=== PATIENT | female | born 1955 | race Caucasian/White ===

== ENCOUNTER 2016-11-12 11:22 | Emergency (ER) | payer OTHER ==
[~2016-11-12] VITALS: Ht 162.6 cm; Wt 88.6 kg
[2016-11-12 11:25] VITALS: BP 156/97; PULSE 91; RESP 18; O2SAT 95
--- NOTE | 2016-11-12 11:55 | ED.REPORT ---
HPI-Abd Pain F 40 and Over Date of Service Nov 12, 2016 ED Provider: Tom Leblanc MD The patient is a 61 year old female who presents to the ED due to abdominal pain after being jumped on by her 60 lb dog 7 days ago. The dog's paws landed right on her mid abdomen and caused a slight bruise. She does not currently feel any pain. She denies any chronic conditions or previous surgeries. She has had normal bowel movements and denies vomiting, fever, and LOC. The pt had a large ovarian cyst removed 5 years ago. Nursing Notes Stated Complaint: STOMACH PAIN Chief Complaint: Female Abdominal Pain Nursing Notes Reviewed: Yes Allergies: Coded Allergies: No Known Allergies (Unverified , 11/12/16) General Time Seen by MD: 11:54 Chief Complaint Abdominal pain Hx Obtained From: Patient Arrived By: Walk-in Sudden in Onset?: Yes Onset Occurred: 1 week ago Symptom Duration: Since onset Progression since Onset: Gradually improving Location: : Abdomen lower Severity: Current: No pain currently Recent Healthcare: No recent doctor visit, No recent hospitalization Similar Sx Previous: No Past Medical History Past Medical History denies Past Surgical History 5 lb ovarian cyst removed 2011 Smoking History Unknown if Ever Smoker Social History Other Social History: Good social support, , Local resident Ambulatory Status Independent Review of Systems Constitutional: Denies: Fever GI: Reports: Abdominal pain, Denies: Vomiting Complete sys rev & neg: except as marked. Neurologic: Denies: Change LOC Physical Exam Vital Signs Vital Signs (First) Date Time Temp Pulse Resp B/P Pulse Ox O2 Delivery O2 Flow Rate FiO2 11/12/16 11:25 36.4 91 18 156/97 95 Room Air Initial VS: Reviewed Head / Eyes: Atraumatic, Normocephalic Extremities: Vascular intact, No swelling, No tenderness Skin: Warm, Dry Neurologic: Alert, Oriented, Nonfocal Psychiatric: Mood/affect normal, Behavior normal, Normal thought content General/Constitutional: Awake, Alert, Cooperative, Not toxic appearing Respiratory / Chest: Atraumatic, No retractions, No chest tenderness Cardiovascular: Regular rhythm Abdomen: Atraumatic, Soft, Non-tender Back: Atraumatic, Inspection NL, Full range of motion Re-Eval/Medical Decision Med Decision/Clinical Course Swollen and has no sign of intra-abdominal injury of any kind. She has very mild tenderness to deep palpation. The mechanism of her injury is relatively benign as well. I think outpatient follow-up next appropriate step. Counseled Regarding: Diagnosis, Lab results, Need for follow-up, When/why to return to ED Discharge & Departure Primary Impression: Abdominal pain Abdominal location: generalized Qualified Code: R10.84 - Generalized abdominal pain Disposition: Home Discharge Condition All VS Reviewed: Yes Condition: Stable Patient Instructions: Acute Abdominal Pain (ED) Additional Instructions: Since you have not had any worsening pain or symptoms following your dog jumping on you, I do not believe there are any dangerous causes for your symptoms at this time. Follow up with a primary care provider for further evaluation and testing. Return to the Emergency Department for any new or worsening symptoms. I hope you feel better soon! Referrals: [facility] Lisseth Dean Attestation Portion of this note were transcribed by Josei Russo. I, Dr. Leblanc, personally performed the history, physical exam, and medical decision-making: I reviewed and confirmed the accuracy for the information in the transcribed note. Signed by: balbina Troncoso, 12/02/16 1400 copies to: [facility]; Lisseth Dean Kirk H MD Nov 12, 2016 11:55 Josie Russo Nov 12, 2016 12:07
[2016-11-12 12:26] VITALS: BP 156/97; PULSE 91; RESP 18; O2SAT 95
[2016-12-02] MEDS ORDERED: VARE0.5T PO (10:48)
[2017-01-23] MEDS ORDERED: BUPR150T9 PO (16:00)
== END 2016-11-12 12:26 | disposition home or self-care (01) ==
LOC: SED 11:22
DX: R10.84 Generalized abdominal pain (principal); W54.1XXA Struck by dog, initial encounter; Y93.89 Activity, other specified; Y92.89 Other specified places as the place of occurrence of the external cause; Y99.8 Other external cause status

== ENCOUNTER 2016-11-17 16:49 | Emergency (ER) | payer OTHER ==
[~2016-11-17] VITALS: Ht 162.6 cm; Wt 88.6 kg
[2016-11-17 16:56] VITALS: BP 165/100; PULSE 84; RESP 20; O2SAT 97
--- NOTE | 2016-11-17 17:11 | ED.REPORT ---
HPI-Abd Pain M 40 and Over Date of Service Nov 17, 2016 ED Provider: Dr. Morales Santos M.D. A 61 year old female with a history of ovarian cysts s/p surgical removal presents to the ED with intermittent mid-upper abdominal pain onset three weeks ago, after her 60lb dog jumped onto her abdomen. The most recent episode began yesterday morning. The pain is exacerbated with standing. The patient also reports nausea and a palpable mass present in the painful area when standing. She denies vomiting, fever, chills, diarrhea, hematochezia, melena, chest pain, SOB, numbness, tingling, weakness, dysuria, hematuria, or other symptoms. The patient was seen in the ED five days ago with similar symptoms. Nursing Notes Stated Complaint: ABDOMEN PAIN Chief Complaint: Female Abdominal Pain Nursing Notes Reviewed: Yes Allergies: Coded Allergies: No Known Allergies (Unverified , 11/12/16) Scheduled PRN Hydrocodone-Acetaminophen 5-325 mg (Hydrocodone-Acetaminophen 5-325 mg) 1 Each Tablet 1 TABLET PO Q4H PRN PRN For Pain Ondansetron ODT (Zofran ODT) 4 Mg Tablet 4 MG PO Q4H PRN PRN For Nausea General Time Seen by MD: 17:10 Chief Complaint Abdominal pain Hx Obtained From: Patient Arrived By: Walk-in Sudden in Onset?: Yes Onset Occurred: More than a week ago... (3 weeks) Symptom Duration: Intermittent Location: : Abdomen upper (Mid) Quality: Painful Severity: Current: Moderate Severity: Maximum: Moderate Associated with: Reports: Nausea, Denies: Dysuria, Fever, Vomiting Pertinent Negative: Relieved by nothing Context Related History: Reports: Abdominal surgery Recent Healthcare: Recent doctor visit Similar Sx Previous: Yes Past Medical History Past Medical History Denies Past Surgical History 5 lb ovarian cyst removed 2011 Smoking History Unknown if Ever Smoker Social History Other Social History: Good social support, , Local resident Ambulatory Status Independent Review of Systems Review of Systems Note: + Mid-abdominal palpable mass present when standing - Tingling Constitutional: Denies: Chills, Fever Respiratory: Denies: Non-productive cough, Shortness of breath Cardiovascular: Denies: Chest pain GI: Reports: Abdominal pain (Mid-upper), Nausea, Denies: Diarrhea, Hematochezia, Melena, Vomiting Male: Denies Dysuria, Denies Hematuria Complete sys rev & neg: except as marked. Neurologic: Denies: Numbness, Weakness Physical Exam Initial Vital Signs Vital Signs (First) Date Time Temp Pulse Resp B/P Pulse Ox O2 Delivery O2 Flow Rate FiO2 11/17/16 16:56 36.6 84 20 165/100 97 Room Air Initial VS: Reviewed Head / Eyes: Atraumatic, Normocephalic Skin: Warm, Dry, No cyanosis Neurologic: Alert, Oriented, Nonfocal Psychiatric: Mood/affect normal, Behavior normal, Normal thought content General/Constitutional: Awake, Alert Respiratory / Chest: Breath sounds NL, Breath sounds = bilat, No respiratory distress Cardiovascular: Heart rate NL, Regular rhythm, Heart sounds NL, No gallop, No murmurs, No rubs Abdomen: Atraumatic, Soft, No guarding, No rebound, BS normoactive, No distention, No hernia, No palpable mass No organomegaly No rigidity Patient tender in the mid-abdomen below epigastrium on midline Interpretation & Diagnostics Lab Results Interpretation Result Diagram: 11/17/16 1714 11/17/16 1714 Test 11/17/16 17:14 White Blood Count 6.8th/mm3 (3.8-10.1) Red Blood Count 4.81mil/mm3 (3.90-5.20) Hemoglobin 14.8g/dL (12.0-15.6) Hematocrit 43.5% (35.0-46.0) Mean Corpuscular Volume 90.4fL (81-100) Mean Corpuscular Hemoglobin 30.8pg (27.0-35.0) Mean Corpuscular Hemoglobin Concent 34.0% (32.0-37.0) Red Cell Distribution Width 13.2% (12.3-15.4) Platelet Count 248bil/L (150-400) Neutrophils (%) (Auto) 60.0% (40-74) Lymphocytes (%) (Auto) 31.6% (14-46) Monocytes (%) (Auto) 5.8% (4-12) Eosinophils (%) (Auto) 2.2% (0-5) Basophils (%) (Auto) 0.3% (0-3) Sodium Level 140mEq/L (134-144) Potassium Level 3.9mEq/L (3.5-5.2) Chloride Level 104mEq/L (97-108) Carbon Dioxide Level 19mmol/L (18-29) Blood Urea Nitrogen 12mg/dL (8-27) Creatinine 0.90mg/dL (0.57-1.00) Estimat Glomerular Filtration Rate 91mL/min (>59) Glucose Level 112mg/dL (60-99) Calcium Level 9.4mg/dL (8.5-10.1) Magnesium Level 2.3mg/dL (1.6-2.6) Total Bilirubin 0.3mg/dL (0.0-1.2) Aspartate Amino Transf (AST/SGOT) 22U/L (0-50) Alanine Aminotransferase (ALT/SGPT) 26U/L (0-32) Alkaline Phosphatase 77U/L (25-165) Total Protein 7.0g/dL (6.4-8.4) Albumin 4.3g/dL (3.4-5.0) Lipase 43U/L (13-60) Hold [place] Top Tube Received (Received) CT Abd / Pelvis Interpretation IMPRESSION: 1. Lobulated hypoattenuating subcapsular lesion in the inferior right hepatic lobe is nonspecific but given the associated capsular retraction, the differential includes scarring from prior infection or trauma as well as neoplastic etiologies such as cholangiocarcinoma or metastatic disease. Given the presence of steatosis, a liver protocol MRI is recommended for further evaluation. 2. Mild segmental wall thickening of the colon at the hepatic flexure and proximal transverse colon may be due to nondistention or reflect a mild infectious or inflammatory colitis. 3. Small fat-containing umbilical ventral abdominal hernia with stranding and fluid within the herniated fat which may reflect fat necrosis. No evidence of bowel herniation. Dictated by: Jose Bill M.D. on 11/17/2016 at 19:30 Study type: Abdominal CT IV contrast, Abdom CT oral contrast Interpretation / Wet Read by: Interpret - Radiologist Re-Eval/Medical Decision Med Decision/Clinical Course A 61 year old female with a history of ovarian cysts s/p surgical removal presents to the ED with intermittent mid-upper abdominal pain onset three weeks ago, after her 60lb dog jumped onto her abdomen. The most recent episode began yesterday morning. The pain is exacerbated with standing. The patient also reports nausea and a palpable mass present in the painful area when standing. She denies vomiting, fever, chills, diarrhea, hematochezia, melena, chest pain, SOB, numbness, tingling, weakness, dysuria, hematuria, or other symptoms. The patient was seen in the ED five days ago with similar symptoms. Here in the emergency department the patient is afebrile with stable vital signs and in no apparent distress. Given her prior abdominal surgery, location of pain, sensation of bulging, worse with standing I suspect that she may have a ventral hernia. My suspicion that this has anything to do with the dog jumping on her is relatively low. Here she was treated with sublingual Zofran and 1 tablet of [place] for pain. Laboratory studies were notable was below: CBC unremarkable CMP unremarkable CT ABDOMEN: IMPRESSION: 1. Lobulated hypoattenuating subcapsular lesion in the inferior right hepatic lobe is nonspecific but given the associated capsular retraction, the differential includes scarring from prior infection or trauma as well as neoplastic etiologies such as cholangiocarcinoma or metastatic disease. Given the presence of steatosis, a liver protocol MRI is recommended for further evaluation. 2. Mild segmental wall thickening of the colon at the hepatic flexure and proximal transverse colon may be due to nondistention or reflect a mild infectious or inflammatory colitis. 3. Small fat-containing umbilical ventral abdominal hernia with stranding and fluid within the herniated fat which may reflect fat necrosis. No evidence of bowel herniation. Dictated by: Jose Bill M.D. on 11/17/2016 at 19:30 At this time, there are no findings suggestive of acute surgical intra- abdominal process. There is no clinical evidence of strain related or incarcerated hernia. There is no evidence of intra-abdominal bleeding or traumatic injury. She remains comfortable, hemodynamically stable and in no apparent distress. She has been referred to surgery for evaluation of possible operative repair of her ventral hernia. She has also been referred to residency clinic and advised to follow up regarding MRI to assess above- described liver lesion. Prior to discharge follow-up and return precautions were reviewed in detail with the patient who verbalized understanding and agreement with the plan. The patient was discharged in stable condition. Time of Eval: 20:01 Patient Status: Condition improved Re-Evaluation/Progress Note: Discussed with patient lab and CT results, diagnosis, and plan for discharge. Follow-up and return to the ER instructions given. Patient agrees with plan for care and all questions were addressed. Counseled Regarding: Diagnosis, Lab results, Need for follow-up, When/why to return to ED Discharge & Departure Primary Impression: Ventral hernia Obstruction and gangrene presence: without obstruction or gangrene Qualified Code: K43.9 - Ventral hernia without obstruction or gangrene Additional Impressions: Liver mass Abdominal pain Abdominal location: unspecified location Qualified Code: R10.9 - Unspecified abdominal pain History of abdominal surgery Disposition: Home Vital Signs - All Vital Signs Date Time Temp Pulse Resp B/P Pulse Ox O2 Delivery O2 Flow Rate FiO2 11/17/16 20:10 36.5 68 20 170/72 99 Room Air 11/17/16 16:56 36.6 84 20 165/100 97 Room Air )( All Prior VS Reviewed: Yes Condition: Improved Patient Instructions: Ventral Hernia (ED) Additional Instructions: Thank you for seeking care at the emergency room. It is difficult for us to make definitive diagnoses in the ED but we believe that you are experiencing a ventral hernia and a liver mass. Our primary goal today in the ED was to evaluate you for any life-threatening conditions. Your evaluation was reassuring. You will be discharged with a prescription for Zofran and a narcotic pain medication. Follow-up with surgery about your hernia. You should follow-up with your primary doctor in the next week about your liver mass. You may need an MRI in the future. You should return to the ED immediately if you develop worsening abdominal pain , vomiting, inability to eat or drink, abdominal bulging that you can't push back in, cough, shortness of breath, chest pain, lightheadedness, weakness or any other concerning signs or symptoms. Thank you for letting us partake in your care today. You have been prescribed a narcotic for pain relief. These drugs are usually combined with acetaminophen (Tylenol#3, Percocet, Darvocet, Anexsia, Vicodin) or aspirin (Empirin#3, Percodan, Synalogs-DC) for increased effect. Narcotics act on the central nervous system to reduce pain; they also impair mental alertness and physical abilities. We advise you not to drink alcohol, drive a car, or operate dangerous equipment when you are taking these drugs. You can lessen stomach irritation from your medicine by taking it with meals or a full glass of water. Common side effects of narcotics are: Nausea and vomiting , heartburn, constipation, dizziness, sleepiness, and mood changes. If you have bothersome side effects or symptoms of an allergic reaction (itching, hives, rash), stop taking your medicine and call your doctor or the emergency room right away. Please keep your narcotic medicine well out of the reach of children. Referrals: NOPCP (PCP) Shayan Montalvo MD [facility] Scribe Attestation Portions of this note were transcribed by Alva Puckett. I, Dr. Santos, personally performed the history, physical exam, and medical decision-making; I reviewed and confirmed the accuracy of the information in the transcribed note. Signed by: Daniella Sommer, 11/17/2016, 21:40 copies to: Shayan Montalvo MD; [facility] Morales Santos MD Nov 17, 2016 17:11 ALVA PUCKETT Nov 17, 2016 17:52
[2016-11-17 17:28] LABS: BASOPHILS % (AUTO) 0.3 % (0-3); EOSINOPHILS % (AUTO) 2.2 % (0-5); MONOCYTES % (AUTO) 5.8 % (4-12); Mean Corpuscular Hemoglobin 30.8 pg (27.0-35.0); Mean Corpuscular Volume 90.4 fL (81-100); Platelet Count 248 bil/L (150-400)
[2016-11-17 17:48] LABS: Magnesium 2.3 mg/dL (1.6-2.6)
--- NOTE | 2016-11-17 19:39 | DRSVH ---
PROCEDURE: CT ABDOMEN AND PELVIS WITH CONTRAST ([id number]) INDICATIONS: Abdominal pain with possible ventral hernia. TECHNIQUE: After the administration of oral and intravenous contrast, 5 mm thick sections acquired from the diap hragms to the symphysis. 5 mm thick coronal and sagittal reformats were performed. For radiation do se reduction, the following was used: automated exposure control, adjustment of mA and/or kV accordi ng to patient size. COMPARISON: None. FINDINGS: Image quality: Excellent. ABDOMEN: Lung bases: There is mild dependent atelectasis. There is a small hernia. Heart size is normal. Solid organs: There is hypoattenuation of the liver consistent with fatty infiltration with sparing a long the gallbladder fossa. There is a peripheral lobulated hypoattenuating lesion inferiorly in the right hepatic lobe with associated mild capsular retraction. This measures approximately 2.1 x 2.8 x 1.2 cm with mild peripheral enhancement. In addition, there are 2 indistinct small hypervascular f oci within the right hepatic lobe in segment VII on series 2 image 19 measuring 1 cm and in segment V I on image 31 measuring 1.1 cm. Biliary system is non-dilated. Pancreas enhances normally. No adre nal nodules. Kidneys are normal in size and enhancement, without hydronephrosis. Peritoneum and bowel: Stomach and small bowel loops are normal in caliber and wall thickness. There is mild segmental wall thickening of the hepatic flexure and proximal transverse colon which may be due to nondistention. There is colonic diverticulosis in the colon without diverticulitis. No free fluid or air. Nodes and vessels: No retroperitoneal or mesenteric adenopathy. Aorta and inferior vena cava are no rmal in caliber. Miscellaneous: There is a small fat containing umbilical hernia with a small amount of stranding and fluid within the herniated fat. No herniated bowel loops. PELVIS: Genitourinary: Bladder wall thickness is normal. Miscellaneous: No inguinal hernias or adenopathy. Bones: No suspicious bony lesions. No vertebral body compression fractures. IMPRESSION: 1. Lobulated hypoattenuating subcapsular lesion in the inferior right hepatic lobe is nonspecific bu t given the associated capsular retraction, the differential includes scarring from prior infection o r trauma as well as neoplastic etiologies such as cholangiocarcinoma or metastatic disease. Given th e presence of steatosis, a liver protocol MRI is recommended for further evaluation. 2. Mild segmental wall thickening of the colon at the hepatic flexure and proximal transverse colon may be due to nondistention or reflect a mild infectious or inflammatory colitis. 3. Small fat-containing umbilical ventral abdominal hernia with stranding and fluid within the herni ated fat which may reflect fat necrosis. No evidence of bowel herniation. Dictated by: Jose Bill M.D. on 11/17/2016 at 19:30 Approved by: Jose Bill M.D. on 11/17/2016 at 19:37
[2016-11-17] MEDS ORDERED: ONDA4TAB9 PO (19:56)
[2016-11-17] MEDS ORDERED: HYDR-4003 PO (19:56)
[2016-11-17 20:10] VITALS: BP 170/72; PULSE 68; RESP 20; O2SAT 99
[2016-12-02] MEDS ORDERED: VARE0.5T PO (10:48)
[2017-01-23] MEDS ORDERED: BUPR150T9 PO (16:00)
== END 2016-11-17 20:10 | disposition home or self-care (01) ==
LOC: SED 16:49
DX: K43.9 Ventral hernia without obstruction or gangrene (principal); R16.0 Hepatomegaly, not elsewhere classified; Z98.890 Other specified postprocedural states
CPT/HCPCS: 74177; 80053; 83690; 83735; 85025; 99284; Q9967

== ENCOUNTER 2016-12-03 12:30 | Day surgery (SDC) | payer OTHER ==
[~2016-12-03] VITALS: Ht 162.6 cm; Wt 86.0 kg
[~2016-12-03 12:30] MED LIST: 0.9% Sodium Chloride 1,000 ML IV SCH; HYDR-4003 PO; ONDA4TAB9 PO; Sodium Biphos-Phos 133 mL Enema RECTAL PRN; Sodium Chloride LOK Flush 10 mL Syringe IV PRN; VARE0.5T PO; fentaNYL-PF 50 mCg/mL 2 mL Inj IVPUSH PRN
[2016-12-03 13:03] VITALS: BP 153/91; PULSE 71; RESP 16; O2SAT 96
[2016-12-03 14:04] VITALS: BP 138/78; PULSE 62; RESP 16; O2SAT 97
[2016-12-03 14:14] VITALS: BP 137/78; PULSE 83; RESP 16; O2SAT 99
[2016-12-03 14:21] VITALS: BP 145/90; PULSE 65; RESP 16; O2SAT 96
--- NOTE | 2016-12-03 14:34 | ENDO ---
[address] [address] ENDOSCOPY PROCEDURE PATIENT: DAV PITT : 1955 MR#: [id number] ADMIT: 12/03/2016 JOB ID: [id number] DATE: 12/03/2016 PREPROCEDURE DIAGNOSIS: Transverse colon thickening. POSTPROCEDURE DIAGNOSIS: Sigmoid colon polyps x3, transverse colon polyp, sigmoid diverticulosis, internal hemorrhoids. PROCEDURE: Colonoscopy with biopsies. ENDOSCOPIST: Dr. Sergio Reyes. MEDICATIONS: 1. Versed 5 mg. 2. Fentanyl 75 mcg in incremental doses. INDICATIONS: The patient is a 61-year-old woman who presented to the emergency department with abdominal pain and intermittent constipation, as well as a painful lump in the epigastrium. A CT scan showed thickening of the hepatic flexure and proximal transverse colon, reflecting either mild infectious or inflammatory colitis versus nondistention. There was a ventral hernia containing fat. There was also a 2.8 cm mass in the right hepatic lobe with capsular retraction. After discussion of risks and benefits, she agreed to proceed with colonoscopy to evaluate the transverse colon thickening. After discussion of risks and benefits, she agreed to proceed. FINDINGS: There was no evidence of mass or colitis in the proximal transverse colon. Polyps were removed from the transverse colon at 90 cm, as well as three separate polyps from the sigmoid colon. There were internal hemorrhoids on retroflexion. DESCRIPTION OF PROCEDURE: At the outset of the procedure, the patient asked me to evaluate a separate opening adjacent to the anus. 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 This was in the midline. She was then sedated. She was connected to hemodynamic monitoring, pulse oximetry, capnography. After digital rectal examination, the PCF H 180 AL colonoscope was inserted. The scope was advanced under visualization until the ileocecal valve and appendiceal orifice were visualized and photo documented. There was no evidence of mass lesion or colitis in the proximal transverse colon. There were polyps, total of four removed during the procedure. There was a polyp at 90 cm in the transverse colon which was 3-4 mm, relatively flat and soft. This was removed with a hot snare plus cold forceps and sent for permanent pathology. There were a total of three separate polyps in the sigmoid colon. One polyp measured 4-5 mm, pedunculated, and was resected with a hot snare. The other two polyps were small measuring 2-3 mm, and resected with cold forceps. They were sent for permanent pathology. Retroflexion revealed small internal hemorrhoids. The scope was withdrawn and the procedure terminated. She tolerated the entire procedure well. RECOMMENDATIONS: She will follow up with me in surgery clinic to finalize plans for ventral hernia repair. She still needs to undergo MRI of the liver to further evaluate the liver mass seen on CT scan. For colon screening, depending on biopsy results, she should have repeat colonoscopy in three years.
--- NOTE | 2016-12-05 14:03 | PATH ---
SURGICAL PATHOLOGY Attending Physician:Virgen Basurto CASE STATUS: Signed Out PATIENT NAME: DAV PITT PID: [id number] : 1955 DATE COLLECTED:12/03/2016 00:00 SPECIMEN: 1: Colon, Biopsy 2: Colon, Biopsy CLINICAL HISTORY: 1. SIGMOID COLON POLYP 2. TRANSVERSE COLON POLYP FINAL DIAGNOSIS: 1.SIGMOID COLON POLYP: TUBULAR ADENOMA INVOLVING TWO BIOPSY FRAGMENTS. HYPERPLASTIC POLYP INVOLVING TWO BIOPSY FRAGMENTS. 2.TRANSVERSE COLON POLYP: TUBULAR ADENOMA INVOLVING SINGLE BIOPSY FRAGMENT. ICD10 code D12.3 GROSS DESCRIPTION: The specimen is received in two formalin filled containers labeled with the patient's name. 1). The specimen is sublabeled "sigmoid colon polyp" and consists of 5 portions of tissue which aggregate to 0.5 x 0.5 x 0.5 CM. The specimen is entirely submitted in cassette 1A. 2). The specimen is sublabeled "transverse colon polyp" and consists of 2 portions of tissue which aggregate to 0.6 x 0.4 x 0.4 CM. The specimen is entirely submitted in cassette 2A. 12/04/2016 [facility] MICRO DESCRIPTION: See diagnosis. ICD-9 CODES: CPT CODES: 1: 60733 2: 26833 Electronically Signed Out Franky Ott MD [facility] [address], [place] [address] Technical component performed at [facility], [address] [place] [address] Ave[address], [place], [address]
[2017-01-23] MEDS ORDERED: BUPR150T9 PO (16:00)
== END 2016-12-03 23:59 | disposition home or self-care (01) ==
LOC: END 12:30
PROVIDERS: ATTEND Student in an Organized Health Care Education/Training Program
DX: D12.5 Benign neoplasm of sigmoid colon (principal); D12.3 Benign neoplasm of transverse colon; K63.5 Polyp of colon; K57.30 Diverticulosis of large intestine without perforation or abscess without bleeding; Z87.898 Personal history of other specified conditions; F17.210 Nicotine dependence, cigarettes, uncomplicated; K64.8 Other hemorrhoids
CPT/HCPCS: 45380; 45385; 88305; 99153; G0500; J7030

== ENCOUNTER 2017-01-27 10:39 | Day surgery (SDC) | payer OTHER ==
[~2017-01-27] VITALS: Ht 162.6 cm; Wt 82.6 kg
[2017-01-27] VITALS (12 sets, daily range): BP systolic 130–155; BP diastolic 64–86; PULSE 64–85; RESP 15–18; O2SAT 92–98
[~2017-01-27 10:39] MED LIST changes: -0.9% Sodium Chloride 1,000 ML IV SCH; +BUPR150T9 PO; +Bupivacaine Liposome 1.3% 20 mL Inj INFILTRATE ONE; +CeFAZolin 2 Gm/50 mL D5W Duplex Bag IV ONE; -HYDR-4003 PO; +Lactated Ringer's 1,000 ML IV SCH; -ONDA4TAB9 PO; -Sodium Biphos-Phos 133 mL Enema RECTAL PRN; -Sodium Chloride LOK Flush 10 mL Syringe IV PRN; -VARE0.5T PO; -fentaNYL-PF 50 mCg/mL 2 mL Inj IVPUSH PRN
[2017-01-27] MEDS ORDERED: Rocuronium 10 mg/mL 5 mL Inj ONE (10:40)
[2017-01-27] MEDS ORDERED: HYDROmorphone 1 mg/mL Inj ONE (10:40)
[2017-01-27] MEDS ORDERED: EPHEDrine/NS 5 mg/mL 5 mL Syringe ONE (10:40)
[2017-01-27] MEDS ORDERED: Neostigmine 1 mg/mL 10 mL Inj ONE (10:40)
[2017-01-27] MEDS ORDERED: Ondansetron 2 mg/mL 2 mL Inj ONE (10:40)
[2017-01-27] MEDS ORDERED: Propofol 10,000 mCg/mL 20 mL Inj ONE (10:40)
[2017-01-27] MEDS ORDERED: fentaNYL-PF 50 mCg/mL 2 mL Inj ONE (10:40)
[2017-01-27] MEDS ORDERED: Glycopyrrolate 0.2 MG/ML 1mL Inj ONE (10:40)
[2017-01-27] MEDS ORDERED: Lactated Ringer's 1,000 ML IV ONE ×2 (11:30→16:05)
[2017-01-27] MEDS ORDERED: CeFAZolin 2 Gm/50 mL D5W Duplex Bag IV ONE (11:58)
[2017-01-27] MEDS ORDERED: Bupivacaine-MPF 0.5% W/EPI 30 mL Inj INFILTRATE ONE (14:07)
[2017-01-27] MEDS ORDERED: Bupivacaine Liposome 1.3% 20 mL Inj ONE (14:16)
[2017-01-27] MEDS ORDERED: Bupivacaine Liposome 1.3% 20 mL Inj INFILTRATE ONE (14:21)
[2017-01-27] MEDS ORDERED: Lactated Ringer's 500 ML IV PRN (15:40)
[2017-01-27] MEDS ORDERED: HYDROmorphone 1 mg/mL Inj IVPUSH PRN (15:40)
[2017-01-27] MEDS ORDERED: Phenylephrine 10,000 mCg/mL Inj IVPUSH PRN (15:40)
[2017-01-27] MEDS ORDERED: hydrALAZINE 20 mg/mL Inj IVPUSH PRN (15:40)
[2017-01-27] MEDS ORDERED: Ondansetron 2 mg/mL 2 mL Inj IVPUSH PRN ×2 (15:40→16:00)
[2017-01-27] MEDS ORDERED: Lactated Ringer's 1,000 ML IV SCH (15:40)
[2017-01-27] MEDS ORDERED: Dexamethasone 4 mg/mL Inj IVPUSH PRN (15:40)
[2017-01-27] MEDS ORDERED: Labetalol 5 mg/mL 4 mL Inj IV PRN (15:40)
[2017-01-27] MEDS ORDERED: Atropine 0.4 mg/mL Inj IVPUSH PRN (15:40)
[2017-01-27] MEDS ORDERED: MetoCLOpramide 5 mg/mL 2 mL Inj IVPUSH PRN ×2 (15:40→16:00)
[2017-01-27] MEDS ORDERED: EPHEDrine Sulfate 50 mg/mL Inj IVPUSH PRN (15:40)
--- NOTE | 2017-01-27 15:40 | PCM.HPANE ---
Patient Data Date of Service: Jan 27, 2017 Surgeon Admitting Provider: Attending Provider:Sergio Reyes MD Primary Care Physician:Mikie Other Provider:Iza Hickey Anesthesia Reason for Visit Liver Mass, Incisional Hernia Ht/WT & BMI Height (Feet): 5 Height (Inches): 4.00 Weight (Kilograms): 83.910 Body Mass Index 31.00 Allergies Coded Allergies: No Known Drug Allergies (Verified Allergy, Unknown, 12/03/16) Past Anesthesia History Anesthesia History: Denies:: Abnormal Airway, Anesthesia Reactions, Difficult Intubation, Fam Anesthesia Reaction, Fam Malignant Hypertherm, Malignant Hyperthermia Diabetes History Hx Diabetes?: No MRSA MRSA: No Medications Hypertension Medication: No Home Meds Incl Beta Aquilino: No Reported Medications Bupropion HCl (Zyban)150 Mg Tablet.er150 Mg PO BID for assistance with smoking cessation 01/23/17 Discontinued Reported Medications Varenicline Tartrate (Chantix)0.5 Mg Tablet0.5 Mg PO 12/02/16 Discontinued Scripts Hydrocodone-Acetaminophen 5-325 mg 1 Each Tablet1 Tablet PO Q4H PRN For Pain # 10 TABLET Prov:Morales Santos MD 11/17/16 Ondansetron ODT (Zofran ODT)4 Mg Tablet4 Mg PO Q4H PRN For Nausea #10 TABLET Prov:Morales Santos MD 11/17/16 History History of ENT Problems?: No HEENT History: Denies:: Abnormal Airway Difficult Intubation Dysphagia Hearing Problem Denture Type: None Teeth Condition: Within Normal Limits Hx of Heart Problems?: No Cardiovascular History: Denies:: AICD Congestive Heart Failure Hypertension Pacemaker Valvular Heart Disease Hx of Respiratory Problem?: No Respiratory History: Denies:: Oxygen Administration Tuberculosis Use of C-PAP Machine Hx Neurologic Problems?: No Neurological History: Denies:: CVA Dementia Multiple Sclerosis Parkinson's Disease Seizures Hx of GI Problems?: Yes Gastrointestinal History: Positive for:: Liver Disease (mass on imaging) Other GI Pertinent History: incisional hernia current admission problem Hx of Problems?: No Genitourinary History: Denies:: Kidney Stones Urinary Tract Infection HX of Peritoneal Dialysis: No Female Hx: Denies:: Currently Skin History: Denies:: History Skin Disorders? Hx Musculoskeletal Problems?: No Musculoskeletal History: Denies:: Joint Replacement Hx of Psycho/Social Problems?: No Psycho Social History: Denies:: Anxiety Hx Depression Hx Surgeries?: Yes (large ovarian cyst removed 5 years ago) Hx Any Other Health Problems?: Yes Other History: Denies:: Cancer Thyroid Disease Hx Diabetes: No Hx Alcohol Use: Yes (2-3 BEERS WEEKLY)Hx Substance Use: No Smoking Status: Unknown if Ever Smoker Have You Smoked inLast 12 mo: Yes Stop/Bang Treated for Sleep Apnea?: No Do You Have a CPAP Machine?: No S-Snoring: Do You Snore Loudly: No T-Tired: feel tired, fatigued: No O-Obsered: Observed not breath: No P-Blood Pressure: treated: No B- Body Mass Index > 35 kg/m2: No A- Age over 50: Yes N- Neck Large Circumference: No G- Gender Male: No NATHALIE Total Score: 1 NATHALIE Risk Assessment: Low Risk, <3 Yes Risk Assessment Category Category 1A: Patient has history of documented sleep apnea, and HAS NOT received any narcotic, sedative or anesthesia administration during this stay. Category 1B: Patient has history of documented sleep apnea, and HAS received any narcotic , sedative or anesthesia administration during this stay Category 2: Patient has SUSPECTED Obstructive Sleep Apnea, and HAS received any narcotic , sedative or anesthesia administration during this stay. Category 3: Patient has SUSPECTED Obstructive Sleep Apnea and HAS NOT received narcotic, sedative or anesthesia administration during this stay. Category 4: Outpatient in Procedural Areas with known sleep apnea or who screen positive for High Risk via the STOP/BANG questionnaire. Exam Exam Vital Signs Vital Signs Date Time Temp Pulse Resp B/P Pulse Ox O2 Delivery O2 Flow Rate FiO2 01/27/17 11:28 36.8 64 16 144/75 95 Room Air General Appearance: Alert, Oriented X3, Cooperative HEENT/AIRWAY: MP 3, Neck Movement (Full), Mouth Opening (Wide) Lungs: Clear to Auscultation, Normal Air Movement Heart: Regular Rate/Rhythm, Normal S1, Normal S2 Plan Impression Patient chart reviewed, patient interviewed and anesthestic plan with risks, benefits, and alternatives discussed, and informed consent obtained. NPO per Anesth. Guidelines: Yes ASA Physical Status: ASA2 Mod Systemic Disease Anesthetic Plan: GA Bene/Risks/Altern/Consents: Yes HP Complete Prior to Induction: Yes Kennedy Castano MD Jan 27, 2017 12:18
[2017-01-27] MEDS ORDERED: Morphine PCA 1 mg/mL 30 mL Inj IV PRN (16:00)
--- NOTE | 2017-01-27 16:13 | PCM.SURGOP ---
Surgical Operative Report Date of Service: Jan 27, 2017 Pre Operative Diagnosis Multi-fenestrated ventral incisional hernia, liver mass Post Operative Diagnosis Same Procedure: Laparoscopic liver biopsy, open ventral incisional hernia repair with mesh Surgeon and Roller Shop Utility Worker: Surgeon: Sergio Reyes MD Assistants: Vidal Yo PA-C Indication for Procedure 61-year-old woman who developed a multi-fenestrated ventral incisional hernia after prior resection of a large benign ovarian cyst. At the time of diagnosis , she was smoking cigarettes, and smoking cessation was required before proceeding with repair, which she successfully did for 4 weeks. She also was found to have a liver mass on the capsule of the right hepatic lobe adjacent to the gallbladder. The mass was 3.2 cm in diameter. Because it was on the capsule, it was not felt to be safe for percutaneous biopsy. She had a colonoscopy which was negative for pathology. After discussion of risks and benefits, she agreed to proceed with laparoscopic liver biopsy, and open ventral incisional hernia repair with mesh. Findings: The liver lesion did not grossly appear malignant, but there was some puckering of the capsule adjacent to the gallbladder, which was biopsied. As expected, there were 2 separate ventral incisional hernias, not incarcerated. The combined fascial defect after extending between the 2 openings was 8 cm craniocaudal by 5 cm transverse. A repair was performed using the 10 x 15 cm Ventralight mesh in the retrorectus position. Procedure Details After smooth induction of general endotracheal anesthesia, she was placed in the supine position with both arms out, and was prepped and draped in wide sterile fashion. A procedural pause was performed according to the SCOAP checklist, and all were found to be in agreement. Pneumoperitoneum was established with a Veress needle in the left upper quadrant without difficulty. The abdomen was then entered through the right midabdomen with a 5 mm optical viewing trocar. The Veress needle site was inspected, and there was no injury. The Veress needle was removed. An additional 5 mm port was placed in the right upper quadrant. The liver was inspected. There was a puckered area of the capsule adjacent to the gallbladder , but there was no obvious malignant mass. There was also a tiny punctate white area on the capsule fairly high on the dome of the left hepatic lobe in the medial segment, which was not accessible to laparoscopic biopsy. A Cornel-Cut needle was used to obtain a biopsy of the puckered area in the right hepatic lobe, which was sent for permanent pathology. Hemostasis was achieved with gentle compression of the biopsy site. The abdominal wall was inspected, revealing the known two ventral incisional hernia defects, without evidence of incarceration. The ports were removed and pneumoperitoneum was released. A midline incision was made, extending from the known hernia sites on the upper abdomen down to the level of the umbilicus. Dissection was carried through the subcutaneous tissue until the midline fascia was incised, and the abdomen was entered through one of the hernia defects. The superior hernia defect contained a portion of the falciform ligament. The two ends were tied with 2-0 silk suture, and the falciform ligament was divided. The fascia was skeletonized circumferentially. The size of the defect was 8 cm craniocaudal by 5 cm transverse. A retrorectus repair was performed. The posterior rectus fascia was peeled off the rectus abdominus muscle circumferentially. The posterior rectus fascia was closed using running 0 Vicryl sutures 2. Skin flaps were then elevated off the rectus abdominus muscle anteriorly. The umbilicus was disconnected from the midline fascia. A repair was then performed using the Bard Ventralight mesh in the retrorectus position. The 10 x 15 cm mesh was selected. This was secured using interrupted 0 Prolene sutures which were trans-fascial through the anterior rectus fascia and the rectus muscle. The mesh was in good position with an appropriate amount of tension. The anterior rectus fascia was then closed using running 0 Vicryl sutures 2. The umbilicus was resuspended to the fascia with a 3-0 Vicryl suture in a [id number]. Liposomal bupivacaine was instilled into the fascia and into the subcutaneous tissue. A 19 Afghan round HARRY drain was brought out through the right mid abdominal port site skin incision, and positioned between the skin flap and the anterior rectus. The drain was secured to the skin with a 2-0 nylon stitch. The deep subcutaneous tissue was reapproximated with running 3-0 Vicryl suture. The skin incisions were closed with running 4-0 Monocryl subcuticular stitches. Steri-Strips and sterile dressings were applied. At the end of the case all needle and sponge counts were correct 2. The patient was awakened from anesthesia without difficulty, and taken to the recovery room in satisfactory condition, having tolerated the procedure well. Complications There were no periprocedural complications identified. Surgical Specimen Removed: Yes Specimen sent to Pathology: Yes Surgical Specimen description: Liver biopsy Anesthetic Plan: GA Grafts, Implants: Implants-See Implant Record Output, Estimated Blood Loss: 30 Blood Administration during fuentes: No Drains: HARRY Drain #1 Catheters: None Sergio Reyes MD Jan 27, 2017 16:13
--- NOTE | 2017-01-27 16:20 | PCM.ANEP1 ---
Post Anesthesia PACU Phase 1 Assessment Date of Service: Jan 27, 2017 Vital Signs Vital Signs Date Time Temp Pulse Resp B/P Pulse Ox O2 Delivery O2 Flow Rate FiO2 01/27/17 11:28 36.8 64 16 144/75 95 Room Air Anesthetic Administered: GA Level of Alertness: Awake, talking VILCHIS's with Equal Strength: Yes Pain: Yes Nausea or Vomiting: No CV Function & Hydration Stable: Yes Airway Device: Oxygen Delivery: Simple Mask Lungs: Clear to Auscultation, Normal Air Movement PACU Phase 2 Assessment Complications: No Follow up Care: N/A Patient Instructions Provided: N/A Kennedy Castano MD Jan 27, 2017 16:20
[2017-01-27] MEDS: fentaNYL-PF 50 mCg/mL 2 mL Inj IVPUSH PRN ×2 (16:25→16:35)
[2017-01-27] MEDS: Heparin 5,000 Unit/mL Inj SUBQ SCH (18:30)
[2017-01-27] MEDS: Dextrose 5% Lactated Ringer's 1,000 ML IV SCH (18:31)
--- NOTE | 2017-01-27 18:43 | NUR ---
[facility] Patient arrived to [facility] at 1745 from OR where she underwent an open hernia repair and liver biopsy. Abdominal site and ABD are c/d/i with minimal spotting. Patient c/o pain 5/10, Toradol given and MS HOSPICE CLINICAL SUPERVISOR started and patient is now resting comfortably. LR 80ml/hr, HARRY drain right side serosang with 20mls output.
[2017-01-27] MEDS: Acetaminophen IV 1,000 MG in IV Premix 1 EACH IV SCH (19:51)
[2017-01-28] VITALS (7 sets, daily range): BP systolic 118–160; BP diastolic 68–86; PULSE 77–85; RESP 16–20; O2SAT 91–95
[2017-01-28] MEDS: Acetaminophen IV 1,000 MG in IV Premix 1 EACH IV SCH ×3 (02:30→14:30)
[2017-01-28] MEDS: Heparin 5,000 Unit/mL Inj SUBQ SCH ×2 (03:13→10:30)
[2017-01-28 06:16] LABS: BASOPHILS % (AUTO) 0.2 % (0-3); EOSINOPHILS % (AUTO) 0.6 % (0-5); MONOCYTES % (AUTO) 5.2 % (4-12); Mean Corpuscular Hemoglobin 30.5 pg (27.0-35.0); Mean Corpuscular Volume 91.7 fL (81-100); NEUTROPHILS % (AUTO) 77.9 % (40-74); Platelet Count 181 bil/L (150-400)
[2017-01-28] MEDS: Dextrose 5% Lactated Ringer's 1,000 ML IV SCH ×2 (06:22→16:23)
[2017-01-28] MEDS ORDERED: HYDR-4003 PO (06:50)
--- NOTE | 2017-01-28 06:50 | PCM.DISURG ---
Surgical Discharge Instruction Date of Service Jan 28, 2017 Dates of Hospitalization Date of Hospital Admission Providers Admitting Physician: Primary Care Physician: Mikie Attending Physician: Sergio Reyes MD Discharge Diagnosis Discharge Diagnosis ventral incisional hernia Post Operative diagnosis Same Diet Discharge Diet: No restrictions Activity Discharge Activity-General: No lifting >10 pounds for 4-6 weeks Dressing and Incisional Care Dressing Care: Allow Steri Stripes to fall off, Remove outer dressing after 24 hrs Hygiene: May shower Additional Instructions Discharge Instructions Empty HARRY drain and record output daily, or more frequently as needed. Call the surgery clinic when HARRY output is less than 20mL in 24 hours, and the drain can be removed at that time. Follow Up Plan Follow Up Plan with Dr. Reeys in 10-14 days. Call your provider for: Fever (over 101.5F), Vomiting, Discharge @ incision, pus discharge Sergio Reyes MD Jan 28, 2017 06:50
[2017-01-28] MEDS ORDERED: POLY17PO6 PO (07:11)
--- NOTE | 2017-01-28 07:41 | PROG NOTE ---
[address] [address] PROGRESS NOTE PATIENT: DAV PITT : 1955 MR#: [id number] ADMIT: 01/27/2017 JOB ID: [id number] DATE: 01/28/2017 SUBJECTIVE: The patient is seen in followup. She feels pretty good this morning. 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 She has no nausea today. She has not passed any flatus. She is urinating without difficulty. OBJECTIVE: Temperature 36.8, pulse 80, blood pressure 118/68, saturation 95% on room air. In general, she is resting in bed, in no acute distress. Chest is clear. Heart: Regular rate and rhythm. No murmurs. Abdomen is soft, nondistended. Her dressings are intact, with no significant drainage. HARRY drain has serosanguineous output, 60 cc overnight. LABORATORIES: White blood cell count 6.5, hematocrit 38.5, platelets 181. Creatinine 0.70, glucose 122. ASSESSMENT AND PLAN: A 61-year-old woman, postoperative day one, status post laparoscopic liver biopsy and open ventral incisional hernia repair with mesh. She is doing well clinically. She will be switched to oral pain medications this morning, and the [employer] ARCHITECT discontinued. If her pain control is adequate on oral pain meds, she can go home today. She will go home with the HARRY drain and will follow up in the Surgery Clinic when drain output is less than 20 cc in 24 hours. She will see me in the Surgery Clinic for a checkup in 10-14 days.
--- NOTE | 2017-01-28 07:59 | NUR ---
HARRY /Pain/ PATTERN CHANGER AND REPAIRER Pt reports pain 02/16, managed with PATTERN CHANGER AND REPAIRER and pt utilized 6mg of morphine this shift. Toradol given once with good effect. Pt ambulates to restroom without difficulty, SBA to manage tubes. HARRY draining sanguinous fluid. IV infusing D5LR at 80. SCD in place. Care continues
[2017-01-28] MEDS ORDERED: Polyethylene Glycol (PEG) 17 Gm Powder PO SCH (08:30)
[2017-01-28] MEDS: HYDROcodone-APAP 5-325 mg Tablet PO PRN ×2 (09:06→15:16)
--- NOTE | 2017-01-28 18:02 | NUR ---
DISCHARGE Patient discharged at 1720 left with who will drive her home. Patient denies chest pain, nausea and shortness of breath. Medications reviewed and new Rx given, HARRY teaching done, and patient verbalizes understanding. Patient received care notes and written follow up instructions, instructed to call with any concerns. IV catheter removed intact and personal belongings returned.
--- NOTE | 2017-01-29 08:05 | PCM.DC.SUR ---
Discharge Summary Date of Service: Date of Hospital Admission: 01/27/2017 Date of Operation(s): 01/27/2017 Date of Discharge: Jan 28, 2017 at 17:02 Diagnosis at Time of Discharge Primary diagnoses: 1. Multi-fenestrated ventral incisional hernia. 2. Liver mass Other chronic conditions: 1. Daily cigarette smoker 2. History of benign ovarian mass 3. History of pilonidal cyst Problems: Operation 1. Laparoscopic liver biopsy 2. open ventral incisional hernia repair with mesh Brief History and Physical: The patient is a 61-year-old woman who developed a multi-fenestrated ventral incisional hernia after prior resection of a large benign ovarian cyst. At the time of diagnosis, she was smoking cigarettes, and smoking cessation was required before proceeding with repair, which she successfully did for 4 weeks. She also was found to have a liver mass on the capsule of the right hepatic lobe adjacent to the gallbladder. The mass was 3.2 cm in diameter. Because it was on the capsule, it was not felt to be safe for percutaneous biopsy. She had a colonoscopy which was negative for pathology. Consultants: None Hospital Course: The patient was admitted and underwent the above-mentioned operations without complication. The following day she was transitioned to oral analgesic and was stable for discharge later in the day. Pathology: Pending Disposition: The patient was discharged home on her first postsurgical day at which time she was tolerating pain on oral analgesic, her wounds were dry and intact, she was ambulating without assistance, and she was tolerating an oral diet with no nausea or vomiting. Follow-up Plan: She will follow-up in the office with Dr. Reyes in 2 weeks. Bupropion HCl (Zyban) 150 Mg Tablet.er 150 MG PO BID (Reported) for assistance with smoking cessation Hydrocodone-Acetaminophen 5-325 mg (Hydrocodone-Acetaminophen 5-325 mg) 1 Each Tablet 1-2 TABLET PO Q6 PRN PRN For Mild Pain Polyethylene Glycol 3350 (Miralax) 17 Gm Powd.pack 17 GM PO DAILY Tomy Fontenot PA-C Jan 29, 2017 08:05
--- NOTE | 2017-01-30 12:36 | PATH ---
SURGICAL PATHOLOGY Attending Physician:Virgen Basurto CASE STATUS: Signed Out PATIENT NAME: DAV PITT PID: [id number] : 1955 DATE COLLECTED:01/27/2017 00:00 SPECIMEN: Liver, Needle Biopsy CLINICAL HISTORY: LIVER MASS INCISIONAL HERNIA 1). LIVER BIOPSY FINAL DIAGNOSIS: LIVER NEEDLE CORE BIOPSY: MILD TO MODERATE STEATOSIS. NEGATIVE FOR EVIDENCE OF A MASS LESION (SEE MICROSCOPIC DESCRIPTION). ICD10 K76.0 GROSS DESCRIPTION: Received is one formalin-filled container, labeled with the patient's name. Part 1 labeled "1. Liver BX" consists of an orange-brown, friable core sample measuring 0.1 cm in diameter and 2.1 cm in length and entirely submitted in one cassette. (HARRY:[id number]) MICRO DESCRIPTION: Sections are of a needle biopsy of liver. There is mild to moderate steatosis present, primarily of the macrovesicular type with some microvesicles also noted. Portal tracts appear essentially normal with minimal lymphocytic infiltrate. A trichrome stain does not reveal any significant portal fibrosis or sinusoidal fibrosis. There is slight hepatocellular unrest; however, definite ballooning degeneration is not noted. Significant lobular inflammation is likewise not noted. An iron stain is negative for evidence of iron overload. It is recognized that this liver biopsy was performed because of an apparent capsular mass. No capsule is present within this material, and there is no evidence of a mass lesion. ICD-9 CODES: CPT CODES: 1: 01667, 89033, 91689 Electronically Signed Out Franky Ott MD [facility] [address], [place] [address] Technical component performed at [facility], [address], [place], [address]
== END 2017-01-28 17:02 | disposition home or self-care (01) ==
LOC: SAS 10:39 → OSC 17:32 → SAS 01-28 17:02
PROVIDERS: ATTEND Student in an Organized Health Care Education/Training Program
DX: K43.9 Ventral hernia without obstruction or gangrene (principal); K76.0 Fatty (change of) liver, not elsewhere classified; F17.210 Nicotine dependence, cigarettes, uncomplicated
CPT/HCPCS: 36415; 47001; 49560; 49568; 80048; 85025; 94640; J0131; J0690; J1170; J1644; J1885; J2250; J2270; J2405; J2710; J3010; J7120